=== PATIENT | male | born 2000 | race Caucasian/White ===

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

== ENCOUNTER 2020-11-28 09:59 | Emergency (ER) | payer OTHER ==
[~2020-11-28] VITALS: Ht 172.7 cm; Wt 77.3 kg
[~2020-11-28 09:59] MED LIST changes: -DIGO-44 PO; +DIGO125T84 PO
[2020-11-28] MEDS ORDERED: IBUPROFEN 600 MG TABLET PO ONE (10:45)
[2020-11-28 10:49] VITALS: BP 127/81
== END 2020-11-28 11:46 | disposition home or self-care (01) ==
LOC: EMS 09:59
DX: S62.306A Unspecified fracture of fifth metacarpal bone, right hand, initial encounter for closed fracture (principal); X58.XXXA Exposure to other specified factors, initial encounter; Y93.89 Activity, other specified; Y92.89 Other specified places as the place of occurrence of the external cause; Y99.8 Other external cause status
CPT/HCPCS: 99284; 73130-TC; 73140-TC; Z7502; Z7610

== ENCOUNTER 2022-05-18 08:49 | Emergency (ER) | payer OTHER ==
[~2022-05-18] VITALS: Ht 172.7 cm; Wt 83.0 kg
[2022-05-18] MEDS ORDERED: IBUPROFEN 600 MG TABLET PO ONE (09:15)
[2022-05-18 11:36] VITALS: BP 125/82
== END 2022-05-18 11:41 | disposition home or self-care (01) ==
LOC: EMS 08:49
DX: M25.512 Pain in left shoulder (principal); Z98.890 Other specified postprocedural states
CPT/HCPCS: 99283

== ENCOUNTER 2023-06-11 10:30 | Emergency (ER) | payer OTHER ==
[~2023-06-11] VITALS: Ht 175.3 cm; Wt 99.0 kg
[2023-06-11 10:47] VITALS: BP 113/65; PULSE 68; RESP 18; TEMP 98.4
== END 2023-06-11 14:59 | disposition left against medical advice (07) ==
LOC: EMS 10:30
DX: Z53.21 Procedure and treatment not carried out due to patient leaving prior to being seen by health care provider (principal)

== ENCOUNTER → 2024-04-16 | Emergency (ER) | payer OTHER ==
[~2024-04-16] VITALS: Ht 172.7 cm; Wt 95.5 kg
[~2024-04-16] MED LIST changes: +ACET-2080 PO; +AZIT250T9 PO; -DIGO125T84 PO; +GUAIFDM PO; +IBUP-1554 PO; +OXYM15SP63 NASAL
[2024-04-16 16:35] VITALS: BP 124/82; PULSE 85; RESP 18; TEMP 99.2; O2SAT 98
[2024-04-16 16:49] LABS: COVID AG,FIA SOURCE NASAL SWAB
[2024-04-16 17:19] LABS: INFLUENZA TYPE A NEGATIVE FOR TYPE A (NEGATIVE); INFLUENZA TYPE B NEGATIVE FOR TYPE B (NEGATIVE); SARS-COV2 (COVID) ANTIGEN,FIA Negative (Negative)
[2024-04-16] MEDS: GuaiFENesin/D-METHORPHAN [SUGAR-FREE] 200-20MG/10 ML SYRUP UDCUP PO ONE (18:16)
[2024-04-16] MEDS: ACETAMINOPHEN/CODEINE 300-30 MG TABLET PO ONE (18:17)
== END | disposition still patient (30) ==
LOC: EMS 16:17
DX: H66.92 Otitis media, unspecified, left ear (principal); J06.9 Acute upper respiratory infection, unspecified; Z88.6 Allergy status to analgesic agent; Z98.890 Other specified postprocedural states; Z20.822 Contact with and (suspected) exposure to COVID-19
CPT/HCPCS: 87804; 99283